=== PATIENT | male | born 1955 | race African-American/Black ===

== ENCOUNTER 2020-11-27 00:12 | Inpatient (IN) | payer MEDICAID ==
[~2020-11-27] VITALS: Ht 182.9 cm; Wt 86.2 kg
[2020-11-27] MEDS ORDERED: ONDANSETRON HCL 4MG/2ML INJ IV STA (00:47)
[2020-11-27] MEDS ORDERED: MORPHINE SULFATE 4 MG/ML CPJ (NOT FOR IM USE) IV STA (00:47)
[2020-11-27] MEDS ORDERED: SODIUM CHLORIDE 0.9% 1,000 ML IV ONE (01:00)
[2020-11-27 01:18] LABS: BASOPHILS % 0.3 % (0.0-2.0); EOSINOPHILS % 0.1 % (0.0-5.0); HEMATOCRIT. 48.4 % (42.0-52.0); HEMOGLOBIN. 15.5 g/dL (14.0-18.0); LYMPHOCYTES % 26.6 % (20.0-50.0); MEAN CORPUSCULAR HEMOGLOBIN 27.8 pg (28.0-32.0); MEAN CORPUSCULAR VOLUME 86.5 fL (80.0-94.0); MEAN PLATELET VOLUME 8.4 fl (7.4-10.4); PLATELET 313 x1000/uL (130-400); RED BLOOD CELL COUNT 5.59 mill/uL (4.7-6.1)
[2020-11-27 01:26] LABS: CHLORIDE 107 mEq/L (98-107)
[2020-11-27 01:50] LABS: PROTHROMBIN TIME 10.1 sec (9.6-11.0)
[2020-11-27] MEDS ORDERED: CEFTRIAXONE 2 G PREMIX 50 ML IV ONE (03:00)
[2020-11-27] MEDS ORDERED: FENTANYL CITRATE/PF 50MCG/ML 2ML VIAL IV ONE (03:00)
[2020-11-27] MEDS ORDERED: METRONIDAZOLE 500 MG PREMIX 100 ML IV ONE (03:00)
[2020-11-27] MEDS ORDERED: IOHEXOL-300 100 ML BOTTLE ONE (04:30)
[2020-11-27 05:46] LABS: CLARITY URINE CLEAR (CLEAR); COLOR URINE YELLOW (YELLOW); KETONES URINE TRACE (NEGATIVE); LEUKOCYTE ESTERASE URINE NEGATIVE (NEGATIVE); NITRITE URINE NEGATIVE (NEGATIVE); OCCULT BLOOD URINE NEGATIVE (NEGATIVE); PH URINE 6.5 (4.5-8.0); PROTEIN URINE NEGATIVE (NEGATIVE); SPECIFIC GRAVITY URINE 1.059 (1.005-1.030); UROBILINOGEN URINE 0.2 E.U./dL (0.2-1.0)
[2020-11-27] MEDS ORDERED: IPRATROPIUM/ALBUTEROL 0.5-3(2.5)MG/3ML NEB NEB PRN (06:30)
[2020-11-27] MEDS ORDERED: DEXT 5%/LACTATED RINGERS 1,000 ML IV SCH (06:30)
[2020-11-27] MEDS ORDERED: PIPERACILLIN/TAZ 3.375G PREMIX 50 ML IV SCH ×2 (06:30→07:00)
[2020-11-27] MEDS ORDERED: NITROGLYCERIN 0.4MG TABLET SL SL PRN (06:30)
[2020-11-27] MEDS ORDERED: LORAZEPAM 2MG/ML CPJ IV PRN (06:30)
[2020-11-27] MEDS ORDERED: MORPHINE SULFATE 2 MG/ML CPJ (NOT FOR IM USE) IV PRN ×2 (06:30→09:15)
[2020-11-27] MEDS ORDERED: ONDANSETRON HCL 4MG/2ML INJ IV PRN ×3 (06:30→09:30)
[2020-11-27] MEDS ORDERED: DIPHENHYDRAMINE 50MG/ML VIAL IV PRN (06:30)
[2020-11-27] MEDS ORDERED: ACETAMINOPHEN 650MG SUPP PR PRN (06:30)
[2020-11-27] MEDS ORDERED: BUPIVACAINE HCL 0.5% (5MG/ML) 50ML ONE (07:17)
[2020-11-27] MEDS ORDERED: SKIN ADHESIVE 0.7 GM EA TOP ONE (07:18)
[2020-11-27] MEDS ORDERED: PROPOFOL 200MG/20ML VIAL IV ONE (08:33)
[2020-11-27] MEDS ORDERED: ROCURONIUM BROMIDE 10MG/ML VIAL 5ML IV ONE (08:35)
[2020-11-27] MEDS ORDERED: HYDROMORPHONE HCL/PF 2MG/ML (OR) ONE (08:39)
[2020-11-27 09:07] LABS: *AMPHETAMINES SCREEN URINE NEGATIVE (NEGATIVE); *BARBITURATES SCREEN URINE NEGATIVE (NEGATIVE)
[2020-11-27 09:08] LABS: *BENZODIAZEPINES SCREEN URINE NEGATIVE (NEGATIVE); *COCAINE SCREEN URINE PRESUMTIVE POSITIVE (NEGATIVE); CANNABINOID URINE SCREEN PRESUMTIVE POSITIVE (NEGATIVE); METHADONE URINE SCREEN NEGATIVE (NEGATIVE); OPIATES URINE SCREEN PRESUMTIVE POSITIVE (NEGATIVE); PHENCYCLIDINE URINE SCREEN NEGATIVE (NEGATIVE)
[2020-11-27] MEDS ORDERED: NEOSTIGMINE METHYLSULFATE 1MG/ML 10 ML VIAL ONE (09:10)
[2020-11-27] MEDS ORDERED: LABETALOL 5MG/ML SYR 20 MG/4 ML SYRINGE IV PRN (09:30)
[2020-11-27] MEDS ORDERED: HYDROMORPHONE HCL/PF 2MG/ML CPJ IV PRN (09:30)
[2020-11-27] MEDS ORDERED: MEPERIDINE HCL/PF 25MG/ML CPJ IV PRN (09:30)
[2020-11-27] MEDS ORDERED: METRONIDAZOLE 500 MG PREMIX 100 ML IV SCH (10:00)
[2020-11-27 11:30] VITALS: BP 112/69
[2020-11-27] MEDS ORDERED: POLY30DR OP (15:26)
[2020-11-27] MEDS: PIPERACILLIN/TAZOBACTAM 3.375 G in DEXT 5% WATER 100 ML IV SCH ×2 (17:26→23:53)
[2020-11-27 20:00] VITALS: BP 116/72
[2020-11-27] MEDS: DEXT 5%/0.45% NACL KCL 20MEQ/L 1,000 ML IV SCH (20:21)
[2020-11-27] MEDS: MORPHINE SULFATE 4 MG/ML CPJ (NOT FOR IM USE) IV PRN (21:20)
[2020-11-28] VITALS: BP 106/89
[2020-11-28] MEDS: MORPHINE SULFATE 4 MG/ML CPJ (NOT FOR IM USE) IV PRN ×2 (00:31→09:25)
[2020-11-28 04:00] VITALS: BP 129/76
[2020-11-28] MEDS: DEXT 5%/0.45% NACL KCL 20MEQ/L 1,000 ML IV SCH ×2 (04:31→17:38)
[2020-11-28] MEDS: METRONIDAZOLE 500 MG PREMIX 100 ML IV SCH ×2 (04:32→14:26)
[2020-11-28] MEDS: PIPERACILLIN/TAZOBACTAM 3.375 G in DEXT 5% WATER 100 ML IV SCH ×3 (06:00→17:38)
[2020-11-28 06:53] LABS: BASOPHILS % 0.2 % (0.0-2.0); EOSINOPHILS % 0.1 % (0.0-5.0); HEMATOCRIT. 43.6 % (42.0-52.0); HEMOGLOBIN. 14.2 g/dL (14.0-18.0); LYMPHOCYTES % 12.8 % (20.0-50.0); MEAN CORPUSCULAR HEMOGLOBIN 28.8 pg (28.0-32.0); MEAN CORPUSCULAR VOLUME 88.4 fL (80.0-94.0); MEAN PLATELET VOLUME 8.5 fl (7.4-10.4); MONOCYTES % 4.6 % (2.0-8.0); NEUTROPHILS % 82.3 % (40.0-76.0); PLATELET 274 x1000/uL (130-400); RED BLOOD CELL COUNT 4.94 mill/uL (4.7-6.1)
[2020-11-28 07:25] LABS: CHLORIDE 108 mEq/L (98-107)
[2020-11-28 07:37] LABS: PHOSPHORUS 1.9 mg/dL (2.5-4.9)
[2020-11-28 08:00] VITALS: BP 110/70
[2020-11-28] MEDS ORDERED: ENOXAPARIN 40MG/0.4ML SYR SUBCUT SCH (09:00)
[2020-11-28] MEDS: ENOXAPARIN 40MG/0.4ML SYR SUBCUT SCH ×2 (09:00→09:18)
[2020-11-28] MEDS: PANTOPRAZOLE SODIUM 40 MG/VIAL IV SCH ×2 (09:00→09:16)
[2020-11-28 12:00] VITALS: BP 121/74
[2020-11-28 16:00] VITALS: BP 122/63
[2020-11-28] MEDS: KETOROLAC 15MG/ML VIAL IV PRN (18:36)
[2020-11-29] MEDS: PIPERACILLIN/TAZOBACTAM 3.375 G in DEXT 5% WATER 100 ML IV SCH ×4 (00:36→17:43)
[2020-11-29] MEDS: DEXT 5%/0.45% NACL KCL 20MEQ/L 1,000 ML IV SCH ×3 (03:30→23:20)
[2020-11-29 04:00] VITALS: BP 129/62
[2020-11-29 08:00] VITALS: BP 116/79
[2020-11-29] MEDS: KETOROLAC 15MG/ML VIAL IV PRN ×2 (08:53→17:44)
[2020-11-29] MEDS: PANTOPRAZOLE SODIUM 40 MG/VIAL IV SCH (08:54)
[2020-11-29] MEDS: ENOXAPARIN 40MG/0.4ML SYR SUBCUT SCH (08:56)
[2020-11-29 12:00] VITALS: BP 133/87
[2020-11-29 20:00] VITALS: BP 130/76
[2020-11-30] VITALS: BP 127/78
[2020-11-30] MEDS: PIPERACILLIN/TAZOBACTAM 3.375 G in DEXT 5% WATER 100 ML IV SCH ×4 (03:14→17:18)
[2020-11-30 04:00] VITALS: BP 133/88
[2020-11-30 08:00] VITALS: BP 133/80
[2020-11-30] MEDS: DEXT 5%/0.45% NACL KCL 20MEQ/L 1,000 ML IV SCH ×2 (08:59→17:18)
[2020-11-30] MEDS: ENOXAPARIN 40MG/0.4ML SYR SUBCUT SCH (09:00)
[2020-11-30] MEDS: PANTOPRAZOLE SODIUM 40 MG/VIAL IV SCH (09:00)
[2020-11-30] MEDS: TRAMADOL 50MG TABLET PO PRN (09:01)
[2020-11-30 12:00] VITALS: BP 147/91
[2020-11-30] MEDS: KETOROLAC 15MG/ML VIAL IV PRN (12:07)
[2020-11-30 16:00] VITALS: BP 103/62
[2020-11-30 20:00] VITALS: BP 118/85
[2020-12-01] VITALS: BP 124/79
[2020-12-01] MEDS: PIPERACILLIN/TAZOBACTAM 3.375 G in DEXT 5% WATER 100 ML IV SCH ×2 (00:32→05:22)
[2020-12-01] MEDS: TRAMADOL 50MG TABLET PO PRN (01:30)
[2020-12-01 04:00] VITALS: BP 105/81
[2020-12-01] MEDS: DEXT 5%/0.45% NACL KCL 20MEQ/L 1,000 ML IV SCH (05:10)
[2020-12-01 08:00] VITALS: BP 145/89
[2020-12-01] MEDS: ENOXAPARIN 40MG/0.4ML SYR SUBCUT SCH (08:55)
[2020-12-01] MEDS: PANTOPRAZOLE SODIUM 40 MG/VIAL IV SCH (08:56)
[2020-12-01 09:32] VITALS: BP 145/89
== END 2020-12-01 10:18 | disposition home or self-care (01) | DRG 233 ==
LOC: ER 00:12 → 6EST 02:56 → ENRESERV 07:40
PROVIDERS: ADMIT Internal Medicine; ATTEND Internal Medicine
PROC: 0DTJ4ZZ Resection of Appendix, Percutaneous Endoscopic Approach (ICD-10-PCS; principal; 2020-11-27)
DX: K35.32 Acute appendicitis with perforation, localized peritonitis, and gangrene, without abscess (principal); G93.40 Encephalopathy, unspecified; Z20.822 Contact with and (suspected) exposure to COVID-19; F11.10 Opioid abuse, uncomplicated; F12.10 Cannabis abuse, uncomplicated; F14.10 Cocaine abuse, uncomplicated
CPT/HCPCS: 36415; 71045; 74177; 80053; 80061; 80305; 81003; 82962; 83036; 83605; 83735; 84100; 85025; 86850; 86900; 87426; 88304; 93005; 93970; 96365; 97162; 97166; 99291; C9113; J0696; J1170; J1650; J1885; J2270; J2405; J2543; J2704; J2710; J3010; J3490; J7030; J7040; J7060; Q9967